=== PATIENT | male | born 1970 | race African-American/Black ===

== ENCOUNTER → 2023-12-06 | Day surgery (SDC) | payer BC ==
[~2023-12-06] MED LIST: CEFAZOLIN SODIUM 2 GM ONE; CEFAZOLIN SODIUM 2 GM VIAL ONE; DEXAMETHASONE SOD PHOS INJ 4 MG/ML SDV ONE; FENTANYL CITRATE/PF 100MCG/2 ML INJ ONE; FISH OIL 1,0001 EAC7 PO; GLYCOPYRROLATE INJ 0.2 MG/ML VIAL ONE; LACTATED RINGER'S 1,000 ML BAG ONE; LACTATED RINGER'S 1,000 ML ONE; LIDOCAINE HCL 2% LOCAL INJ 5 ML SDV VIAL INJ ONE; MIDAZOLAM HCL 2 MG/2 ML VIAL ONE; ONDANSETRON HCL INJ 2MG/ML 2ML 2 MG/ML VIAL ONE; PROPOFOL IV EMULSION 10 MG/ML 20 ML VIAL ONE; SEVOFLURANE INHAL SOLN 250 ML PEN BTL ONE; Sodium Chloride 0.9% 50ML Bag ONE
[2023-12-06] MEDS: LACTATED RINGER'S 1,000 ML BAG IV ONE (11:30)
[2023-12-06 13:26] VITALS: TEMP 97
[2023-12-06 14:25] VITALS: BP 122/90; PULSE 82; RESP 14; O2SAT 97
== END | disposition home or self-care (01) ==
LOC: OR 10:46
PROVIDERS: ATTEND Podiatrist Foot & Ankle Surgery
DX: M72.2 Plantar fascial fibromatosis (principal); G58.8 Other specified mononeuropathies; E78.5 Hyperlipidemia, unspecified; M54.9 Dorsalgia, unspecified; F17.290 Nicotine dependence, other tobacco product, uncomplicated
CPT/HCPCS: 28041; 64704; 88305; J1100; J2001; J2250; J2405; J2704; J3010; J7121; 88304